=== PATIENT | male | born 1955 | race Caucasian/White ===

== ENCOUNTER 2017-02-22 15:43 | Emergency (ER) | payer OTHER ==
[~2017-02-22] VITALS: Ht 180.3 cm; Wt 97.7 kg
[2017-02-22 16:26] LABS: HEMATOCRIT 44.9 % (39.2-51.8); HEMOGLOBIN 14.9 g/dL (13.7-18.0); WHITE BLOOD COUNT 7.4 x10^3/uL (3.4-10)
[2017-02-22] MEDS ORDERED: ONDANSETRON 2MG/ML, 2ML ONE (16:26)
[2017-02-22] MEDS ORDERED: MORPHINE SULFATE 4 MG/ML, 1ML ONE ×2 (16:26→17:04)
[2017-02-22] MEDS ORDERED: ONDANSETRON 2MG/ML, 2ML IVPush ONE (16:30)
[2017-02-22] MEDS ORDERED: SODIUM CHLORIDE 0.9% 1,000ML IVBOLUS ONE (16:30)
[2017-02-22] MEDS ORDERED: SODIUM CHLORIDE FLUSH 10ML SYR IVF ONE (16:30)
[2017-02-22 16:37] LABS: BLOOD UREA NITROGEN 14 mg/dL (7-18)
[2017-02-22 16:41] LABS: ASPARTATE AMINO TRANSFERASE 17 U/L (15-37)
[2017-02-22] MEDS: MORPHINE SULFATE 4 MG/ML, 1ML IVPush PRN ×2 (17:07→17:08)
[2017-02-22] MEDS ORDERED: DIAZEPAM 5 MG/ML, 2ML ONE (17:21)
[2017-02-22] MEDS ORDERED: DIAZEPAM 5 MG/ML, 10ML VIAL IVPush ONE (17:30)
[2017-02-22] MEDS ORDERED: OMNIPAQUE 350 MG/ML, 100ML BOTTLE ONE (17:44)
[2017-02-22] MEDS ORDERED: HYDROmorphone 1 MG/ML, 1ML ONE (17:50)
[2017-02-22] MEDS ORDERED: HYDROmorphone 1 MG/ML, 1ML IVPush PRN (18:00)
[2017-02-22 19:03] VITALS: BP 130/60
== END 2017-02-22 19:08 | disposition home or self-care (01) ==
LOC: ED 18:16
DX: S39.011A Strain of muscle, fascia and tendon of abdomen, initial encounter (principal); S39.012A Strain of muscle, fascia and tendon of lower back, initial encounter; S39.013A Strain of muscle, fascia and tendon of pelvis, initial encounter; W19.XXXA Unspecified fall, initial encounter; Y93.89 Activity, other specified; Y92.39 Other specified sports and athletic area as the place of occurrence of the external cause; Y99.8 Other external cause status
CPT/HCPCS: 36415; 74177; 80053; 83690; 85025; 96361; 96374; 96375; 99285; J1170; J2405; J3360; J7030; Q9967

== ENCOUNTER → 2021-01-06 | Outpatient (CLI) | payer MEDICARE ==
[~2021-01-06] MED LIST: ASCO100018 PO; COCO1000 PO; CYAN100063 PO; GARL10002 PO; GLUC1TAB55 PO; KRIL500C PO; LACT1CAP35 PO; MELO15TA24 PO; OMEP20TA62 PO; PSYL0.5215 PO; TURM500C4 PO
[2021-01-06 16:35] LABS: BASOPHILS % (AUTO) 1 % (0-1); EOSINOPHILS % (AUTO) 1 % (1-7); LYMPHOCYTES % (AUTO) 22 % (22-44); MEAN CORPUSCULAR HEMOGLOBIN 32.7 pg (27.5-34.5); MEAN CORPUSCULAR HGB CONC 34.1 g/dL (33.2-36.2); MEAN PLATELET VOLUME 7.6 fL (7.4-10.4); MONOCYTES % (AUTO) 9 % (2-9); NEUTROPHILS % (AUTO) 67 % (42-75); PLATELET COUNT 271 x10^3/uL (130-400); RED BLOOD COUNT 4.27 x10^6/uL (4.38-5.82)
[2021-01-06 16:43] LABS: ANION GAP 9 mmol/L (5-15); CALCIUM 8.6 mg/dL (8.5-10.1); CHLORIDE 109 mmol/L (98-107)
== END | disposition home or self-care (01) ==
LOC: STAR 15:34
PROVIDERS: ATTEND Urology
DX: Z01.818 Encounter for other preprocedural examination (principal); N40.1 Benign prostatic hyperplasia with lower urinary tract symptoms; I45.19 Other right bundle-branch block; Z20.822 Contact with and (suspected) exposure to COVID-19
CPT/HCPCS: 36415; 80048; 85025; 87086; 93005; U0003; U0005

== ENCOUNTER 2021-01-12 13:41 | Day surgery (SDC) | payer MEDICARE ==
[~2021-01-12] VITALS: Ht 180.3 cm; Wt 90.7 kg
[2021-01-12 14:37] VITALS: BP 134/92
[2021-01-12] MEDS ORDERED: CHLORHEXIDINE 15 ML UDC PO ONE (15:00)
[2021-01-12] MEDS ORDERED: LACTATED RINGERS 1,000 ML IV SCH (15:00)
[2021-01-12] MEDS ORDERED: FENTANYL PF 100 MCG/2ML ONE ×4 (15:22→16:53)
[2021-01-12] MEDS ORDERED: MIDAZOLAM 1 MG/ML, 2ML ONE (15:22)
[2021-01-12] MEDS ORDERED: OXYcodone 5 MG/5 ML ORAL.SOL UDC PO PRN (15:30)
[2021-01-12] MEDS ORDERED: ACETAMINOPHEN 325 MG TABLET PO PRN (15:30)
[2021-01-12] MEDS ORDERED: MEPERIDINE/PF 25MG/0.5ML IVPush PRN (15:30)
[2021-01-12] MEDS ORDERED: PROMETHAZINE 25 MG/ML, 1ML IVPush PRN (15:30)
[2021-01-12] MEDS ORDERED: LABETALOL 5MG/ML, 20ML IV PRN (15:30)
[2021-01-12] MEDS ORDERED: ONDANSETRON 2MG/ML, 2ML IVPush PRN (15:30)
[2021-01-12] MEDS ORDERED: DEXAMETHASONE 4 MG/ML, 1ML ONE (16:00)
[2021-01-12] MEDS ORDERED: PROPOFOL 10 MG/ML, 20ML ONE (16:14)
[2021-01-12] MEDS ORDERED: ONDANSETRON 2MG/ML, 2ML ONE (16:14)
[2021-01-12] MEDS ORDERED: OPIUM/BELLADONNA SUPP.RECT 16.2-30 MG ONE (16:18)
[2021-01-12] MEDS ORDERED: KETOROLAC 30 MG/1 ML ONE (16:24)
[2021-01-12] MEDS ORDERED: OXYcodone 5 MG/5 ML ORAL.SOL UDC ONE ×2 (16:40→16:53)
[2021-01-12] MEDS: FENTANYL PF 100 MCG/2ML IV PRN ×4 (16:42→17:07)
[2021-01-12] MEDS ORDERED: HYDROmorphone 1 MG/ML, 1ML INJ ONE ×2 (16:53→17:12)
[2021-01-12] MEDS: HYDROmorphone 1 MG/ML, 1ML INJ IVPush PRN ×3 (16:58→17:13)
[2021-01-12] MEDS ORDERED: hydrALAzine 20 MG/ML, 1ML ONE (17:12)
[2021-01-12] MEDS: hydrALAzine 20 MG/ML, 1ML IV PRN ×2 (17:15→17:37)
[2021-01-12] MEDS ORDERED: LABETALOL 5MG/ML, 20ML ONE (17:49)
== END 2021-01-12 19:30 | disposition home or self-care (01) ==
LOC: OR 13:41
PROVIDERS: ATTEND Urology
DX: N40.1 Benign prostatic hyperplasia with lower urinary tract symptoms (principal); N13.8 Other obstructive and reflux uropathy; Z79.899 Other long term (current) drug therapy
CPT/HCPCS: 52450; J0360; J1170; J3010; J1100; J1885; J2250; J2405; J2704